=== PATIENT | female | born 1960 | race African-American/Black ===

== ENCOUNTER 2019-07-16 13:57 | Outpatient (CLI) | payer BC ==
--- NOTE | 2019-07-16 14:35 | MMO ---
Left Breast MAMMO Unilat Diag [facility]DI LT+RENATO. CLINICAL HISTORY: Patient is 59 years old and is seen for diagnostic exam. The patient has a history of left Lumpectomy in 1994 - benign. VIEWS: The views performed were: left craniocaudal with tomosynthesis; left mediolateral oblique with tomosynthesis; and left mediolateral with tomosynthesis. FILMS COMPARED: The present examination has been compared to prior imaging studies performed at [facility] on 06/24/2019, and at [facility] on 05/03/2012, 05/25/2016 and 02/07/2018. This study has been interpreted with the assistance of computer-aided detection. MAMMOGRAM FINDINGS: The breast is heterogeneously dense, which could obscure a lesion on mammography. There is a stable low density, oval mass with circumscribed margins seen in the left breast at 12 o'clock. Stable adjacent benign appearing calcifications. There are no suspicious masses, suspicious calcifications, or new areas of architectural distortion. IMPRESSION: THERE IS NO MAMMOGRAPHIC EVIDENCE OF MALIGNANCY. A ROUTINE FOLLOW-UP MAMMOGRAM IN 1 YEAR IS RECOMMENDED. THE RESULTS OF THIS EXAM WERE SENT TO THE PATIENT. ACR BI-RADS Category 2 - Benign finding MAMMOGRAPHY NOTE: 1. A negative mammogram report should not delay a biopsy if a dominant of clinically suspicious mass is present. 2. Approximately 10% to 15% of breast cancers are not detected by mammography. 3. Adenosis and dense breasts may obscure an underlying neoplasm. Reported by: CATRINA STRONG MD Electonically Signed: [id number]
== END 2019-07-16 13:58 | disposition home or self-care (01) ==
LOC: BICMAMMO 13:57
PROVIDERS: ATTEND Student in an Organized Health Care Education/Training Program
DX: R92.8 Other abnormal and inconclusive findings on diagnostic imaging of breast (principal)
CPT/HCPCS: G0279